=== PATIENT | male | born 2005 | race Caucasian/White ===

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

== ENCOUNTER 2024-07-07 03:12 | Emergency (ER) | payer BC ==
[~2024-07-07] VITALS: Ht 172.7 cm; Wt 100.0 kg
[2024-07-07 03:16] VITALS: TEMP 98.1
[2024-07-07] MEDS ORDERED: LR 1,000 ML IV ONE (03:30)
[2024-07-07] MEDS ORDERED: Ondansetron 4 MG/2 ML VIAL IV ONE (03:30)
[2024-07-07 05:52] VITALS: BP 128/81; PULSE 80
== END 2024-07-07 05:50 | disposition home or self-care (01) ==
LOC: COL.ER 03:12
DX: R07.89 Other chest pain (principal); F10.129 Alcohol abuse with intoxication, unspecified
CPT/HCPCS: J2405; J7120